=== PATIENT | male | born 1930 | race Two or more races ===

== ENCOUNTER 2017-06-29 11:15 | Outpatient (CLI) | payer OTHER ==
[~2017-06-29 11:15] MED LIST: SYNTHROID150 MCG
== END 2017-06-29 11:25 | disposition home or self-care (01) ==
LOC: LAB 11:15
DX: E03.8 Other specified hypothyroidism (principal); K21.9 Gastro-esophageal reflux disease without esophagitis; N40.0 Benign prostatic hyperplasia without lower urinary tract symptoms; R64 Cachexia; D69.49 Other primary thrombocytopenia; E78.2 Mixed hyperlipidemia; I10 Essential (primary) hypertension

== ENCOUNTER 2017-06-29 11:19 | Outpatient (CLI) | payer OTHER | END 2017-06-29 11:25 | disposition home or self-care (01) | LOC: RAD 11:19 | DX: I10 Essential (primary) hypertension (principal); E03.8 Other specified hypothyroidism; K21.9 Gastro-esophageal reflux disease without esophagitis; N40.0 Benign prostatic hyperplasia without lower urinary tract symptoms; R64 Cachexia; D69.49 Other primary thrombocytopenia; E78.2 Mixed hyperlipidemia ==

== ENCOUNTER 2017-07-18 09:59 | Inpatient (IN) | payer OTHER ==
[~2017-07-18] VITALS: Ht 170.2 cm; Wt 45.4 kg
[2017-07-18] MEDS ORDERED: LASIX20 MG PO (10:33)
[2017-07-18] MEDS ORDERED: TAMS0.4C PO (10:34)
[2017-07-18] MEDS ORDERED: CARVEDILOL3.125 MG PO (10:34)
[2017-07-18] MEDS ORDERED: VASOTEC2.5 MG PO (10:34)
[2017-07-18] MEDS ORDERED: PROTONIX40 MG PO (10:35)
[2017-07-19] MEDS ORDERED: SYNTHROID100 MCG PO (09:46)
[2017-08-03] MEDS ORDERED: TAMS0.4C PO (15:13)
[2017-08-03] MEDS ORDERED: AMIODARONE HCL200 MG PO (15:14)
[2017-08-03] MEDS ORDERED: APETIGEN L790 MG/15 PO (15:14)
[2017-08-03] MEDS ORDERED: PAROXETINE HCL10 MG PO (15:15)
[2017-08-03] MEDS ORDERED: LASIX20 MG PO ×2 (15:16→15:17)
[2017-08-03] MEDS ORDERED: LEVOTHYROXINE100 MCG PO (15:18)
[2017-08-03] MEDS ORDERED: PROTONIX40 MG PO (15:18)
[2017-08-03] MEDS ORDERED: PROSCAR5 MG PO (15:19)
[2017-08-03] MEDS ORDERED: LOPRESSOR25 MG PO (15:20)
[2017-08-03] MEDS ORDERED: LISINOPRIL2.5 MG PO (15:21)
[2017-08-03] MEDS ORDERED: COUMADIN5 MG PO (15:30)
== END 2017-08-03 19:21 | disposition home or self-care (01) | DRG 280 ==
LOC: ER 09:59 → ICU-2 18:33 → ICU 18:33 → MEDI 07-24 19:50
PROC: 3E0F7GC Introduction of Other Therapeutic Substance into Respiratory Tract, Via Natural or Artificial Opening (ICD-10-PCS; principal; 2017-07-18)
PROC: 4A033R1 Measurement of Arterial Saturation, Peripheral, Percutaneous Approach (ICD-10-PCS; 2017-07-18)
PROC: B246ZZZ Ultrasonography of Right and Left Heart (ICD-10-PCS; 2017-07-18)
PROC: 4A12X4Z Monitoring of Cardiac Electrical Activity, External Approach (ICD-10-PCS; 2017-07-24)
DX: I21.4 Non-ST elevation (NSTEMI) myocardial infarction (principal); J18.9 Pneumonia, unspecified organism; I50.23 Acute on chronic systolic (congestive) heart failure; A41.9 Sepsis, unspecified organism; R65.21 Severe sepsis with septic shock; I42.0 Dilated cardiomyopathy; I13.0 Hypertensive heart and chronic kidney disease with heart failure and stage 1 through stage 4 chronic kidney disease, or unspecified chronic kidney disease; B37.0 Candidal stomatitis; I47.2 Ventricular tachycardia; I23.6 Thrombosis of atrium, auricular appendage, and ventricle as current complications following acute myocardial infarction; F03.90 Unspecified dementia, unspecified severity, without behavioral disturbance, psychotic disturbance, mood disturbance, and anxiety; I48.0 Paroxysmal atrial fibrillation; N18.3 Chronic kidney disease, stage 3 (moderate)

== ENCOUNTER 2017-08-07 05:31 | Emergency (ER) | payer OTHER ==
[~2017-08-07] VITALS: Ht 172.7 cm; Wt 45.4 kg
[~2017-08-07 05:31] MED LIST changes: +AMIODARONE HCL200 MG PO; +APETIGEN L790 MG/15 PO; +CARVEDILOL3.125 MG PO; +COUMADIN5 MG PO; +LASIX20 MG PO; +LEVOTHYROXINE100 MCG PO; +LISINOPRIL2.5 MG PO; +LOPRESSOR25 MG PO; +PAROXETINE HCL10 MG PO; +PROSCAR5 MG PO; +PROTONIX40 MG PO; +SYNTHROID100 MCG PO; +TAMS0.4C PO; +VASOTEC2.5 MG PO
== END 2017-08-07 17:59 | disposition home or self-care (01) ==
LOC: ER 05:31 → CPU-OBS 05:32 → ER 17:59
DX: I50.9 Heart failure, unspecified (principal); I48.91 Unspecified atrial fibrillation; I42.0 Dilated cardiomyopathy; N18.3 Chronic kidney disease, stage 3 (moderate); I21.29 ST elevation (STEMI) myocardial infarction involving other sites; I47.2 Ventricular tachycardia; I51.9 Heart disease, unspecified; R64 Cachexia; F03.90 Unspecified dementia, unspecified severity, without behavioral disturbance, psychotic disturbance, mood disturbance, and anxiety; R07.89 Other chest pain; R53.1 Weakness; J11.1 Influenza due to unidentified influenza virus with other respiratory manifestations